=== PATIENT | male | born 1950 | race Caucasian/White ===

== ENCOUNTER 2017-10-10 20:03 | Emergency (ER) | payer MEDICARE, BC ==
[2017-10-10] MEDS ORDERED: 0.9 % SODIUM CHLORIDE 1,000 ML BAG IV ONE ×2 (20:20→23:11)
[2017-10-10] MEDS ORDERED: ONDANSETRON HCL IV 4 MG/2 ML VIAL IVP ONE (20:20)
[2017-10-10] MEDS ORDERED: DICYCLOMINE HCL 10 MG CAPSULE PO ONE (20:20)
--- NOTE | 2017-10-10 20:21 | Emergency Department Record ---
History of Present Illness - General Chief complaint: Nausea, Vomiting, Diarrhea Stated complaint: DIARRHEA,CHEST/SINUS CONGESTION, Time Seen by Provider: 10/10/17 20:16 Source: Patient Mode of Arrival: Ambulatory Limitations: No limitations - History of Present Illness Initial comments: 67 yo male presents with one week of abdominal symptoms. He reports that the symptoms started with constipation, bloated feeling and burping. He was seen in [place]. He was treated with Miralax. The abdominal fullness and bloating have continued. He had one episode of large diarrhea today. No vomiting but he does have reflux. No fevers or chills. No chest pain. He feels congestion and gets anxiety when he can not have a proper bowel movement. He denies any abdominal surgery history. PCP is Joan. He had a colonoscopy at some point in the past but can not remember the results. MD complaint: Abdominal pain, Diarrhea, Nausea -: Week(s) (1) Description of Vomiting: Watery Description of Diarrhea: Water Location: Epigastric Radiation: Epigastric Severity: Moderate Quality: Cramping Consistency: Constant Improves with: None Worsens with: Eating Context: Other Associated Symptoms: Loss of appetite - Related Data Home Medications Medication Instructions Recorded Confirmed Last Taken Dicyclomine HCl 20 mg PO BID 10/10/17 10/10/17 Unknown Lisinopril 40 mg PO DAILY 10/10/17 10/10/17 Unknown Metoprolol Tartrate [Lopressor] 50 mg PO BID 10/10/17 10/10/17 Unknown Polyethylene Glycol 3350 [Glycolax] 17 gm PO DAILY 10/10/17 10/10/17 Unknown Previous Rx's Medication Instructions Recorded Pantoprazole Sodium [Protonix] 20 mg PO DAILY #30 tablet. 10/11/17 Allergies Allergy/AdvReac Type Severity Reaction Status Date / Time No Known Drug Allergies Allergy Verified 10/10/17 22:20 Review of Systems Constitutional: Denies: Chills, Fever, Malaise, Weakness Eyes: Denies: Eye discharge, Eye pain, Photophobia, Vision change ENT: Reports: Congestion. Denies: Dental pain, Throat pain Respiratory: Denies: Cough, Dyspnea, Hemoptysis, Stridor, Wheezes Cardiovascular: Denies: Chest pain, Dyspnea on exertion, Edema, Palpitations, Syncope Endocrine: Denies: Fatigue Gastrointestinal: Reports: Abdominal pain, Constipation, Diarrhea, Nausea, Vomiting. Denies: Hematemesis, Hematochezia, Melena Genitourinary: Denies: Dysuria, Frequency, Hematuria Musculoskeletal: Reports: Back pain. Denies: Arthralgia, Joint swelling, Myalgia Skin: Denies: Bruising, Change in color, Rash Neurological: Denies: Confusion, Headache, Numbness, Weakness Psychiatric: Denies: Anxiety Hematological/Lymphatic: Denies: Blood Clots, Easy bleeding, Easy bruising Physical Exam - General General Appearance: Alert, Oriented x3, Cooperative, No acute distress Limitations: No limitations - Head Head exam: Normal inspection - Eye Eye exam: Normal appearance, PERRL - ENT ENT exam: Normal exam Ear exam: Normal external inspection Nasal Exam: Normal inspection Mouth exam: Normal external inspection Teeth exam: Normal inspection - Neck Neck exam: Normal inspection, Full ROM - Respiratory Respiratory exam: Normal lung sounds bilaterally. negative: Accessory muscle use, Decreased breath sounds, Prolonged expiratory, Respiratory distress, Rhonchi, Stridor, Wheezes - Cardiovascular Cardiovascular Exam: Regular rate, Normal rhythm, Normal heart sounds - GI/Abdominal GI/Abdominal exam: Soft, Normal bowel sounds, Tenderness. negative: Diminished bowel sounds, Distended, Guarding, Rebound, Rigid - Rectal Rectal exam: Deferred - exam: Deferred - Extremities Extremities exam: Normal inspection, Full ROM, Normal capillary refill. negative: Tenderness - Back Back exam: Reports: Vertebral tenderness (mild upper lumber tender). Denies: CVA tenderness (R), CVA tenderness (L), Paraspinal tenderness, Rash noted - Neurological Neurological exam: Alert, Oriented X3 - Psychiatric Psychiatric exam: Normal affect, Normal mood - Skin Skin exam: Dry, Intact, Normal color, Warm Course Vital Signs 10/10/17 20:09 Temperature 98.2 F Pulse Rate [ 89 Pulse Ox Probe] Respiratory 24 Rate Blood Pressure 140/109 [Left Arm] Pulse Ox 99 - Reevaluation(s) Reevaluation #1: No acute changes on the CBC The CMP and Lipase were reviewed. CR is 1.5 with GFR 50 10/10/17 21:00 UA is negative 10/10/17 22:10 Medical Decision Making - Lab Data Result diagrams: 10/10/17 20:22 10/10/17 20:22 Disposition Disposition: Discharge Clinical Impression: Abdominal pain Disposition: Home, Self-Care Condition: (1) Good Instructions: Gastroesophageal Reflux Disease (ED), Abdominal Pain (ED) Additional Instructions: You have been referred to the GI clinic at [facility] for your symptoms You will be contacted with a follow up appointment time Call your doctor tomorrow for close follow up of the symptoms Return immediately if you have a return of symptoms, any new symptoms or concerns Prescriptions: Pantoprazole Sodium [Protonix] 20 mg PO DAILY #30 tablet. Referrals: [facility] [Provider Group] GLORIA RENDON [MEDICAL DOCTOR] - Forms: Patient Portal Access Time of Disposition: 00:59 Quality - Quality Measures Quality Measures: N/A - Blood Pressure Screening Does Patient Have Any of the Following: Active Dx of HTN Blood Pressure Classification: Hypertensive Reading Systolic Measurement: 182 Diastolic Measurement: 109 Screening for High Blood Pressure: Patient Exclusion, Hx of HTN [G9744]
[2017-10-10 20:29] LABS: BASO % 0.5 % (0-6); EOS % 2.3 % (0-6); GRAN % 65.5 % (47-80); HEMATOCRIT 42.4 % (42.0-52.0); HEMOGLOBIN 14.3 gm/dl (14.0-18.0); LYMPH % 20.9 % (16-45); MEAN CELL VOLUME 95.3 fl (81-97); MEAN CORPUSCULAR HEMOGLOBIN 32.1 pg (27-33); MEAN CORPUSCULAR HGB CONC 33.7 g/dl (32-36); MEAN PLATELET VOLUME 8.7 fl (7.4-10.4); MONO % 10.8 % (0-9); PLATELET COUNT 338 K/uL (130-400); RED BLOOD COUNT 4.45 M/uL (4.40-5.70)
[2017-10-10 20:42] LABS: BILIRUBIN,TOTAL 0.7 mg/dL (0.2-1.0); CREATININE 1.5 mg/dL (0.7-1.2)
[2017-10-10 20:43] LABS: TOTAL PROTEIN 7.9 g/dL (6.6-8.7)
[2017-10-10 20:47] LABS: ALB/GLOB RATIO 1.4 (1.1-1.8); ALBUMIN 4.6 g/dL (4.0-5.0)
[2017-10-10 21:06] LABS: URINE APPEARANCE CLEAR; URINE BILIRUBIN NEGATIVE (NEGATIVE); URINE BLOOD NEGATIVE (NEGATIVE); URINE COLOR YELLOW; URINE GLUCOSE (UA) NEGATIVE (NEGATIVE); URINE KETONE NEGATIVE (NEGATIVE); URINE LEUKOCYTE ESTERASE NEGATIVE (NEGATIVE); URINE NITRITE NEGATIVE (NEGATIVE); URINE PROTEIN NEGATIVE (NEGATIVE); URINE UROBILINOGEN 0.2 E.U./dL (0.20 - 1.00)
--- NOTE | 2017-10-11 00:12 | Emergency Department Record ---
History of Present Illness - General Chief complaint: Nausea, Vomiting, Diarrhea Stated complaint: DIARRHEA,CHEST/SINUS CONGESTION, Time Seen by Provider: 10/10/17 20:16 Source: Patient Mode of Arrival: Ambulatory Limitations: No limitations - History of Present Illness MD complaint: Abdominal pain, Diarrhea, Nausea Onset/Timin -: Week(s) (1) Description of Vomiting: Watery Description of Diarrhea: Water Associated Abdominal Pain: No Location: Epigastric Radiation: Epigastric Severity: Moderate Quality: Cramping Consistency: Constant Improves with: None Worsens with: Eating Context: Other Associated Symptoms: Loss of appetite - Related Data Home Medications Medication Instructions Recorded Confirmed Last Taken Dicyclomine HCl 20 mg PO BID 10/10/17 10/10/17 Unknown Lisinopril 40 mg PO DAILY 10/10/17 10/10/17 Unknown Metoprolol Tartrate [Lopressor] 50 mg PO BID 10/10/17 10/10/17 Unknown Polyethylene Glycol 3350 [Glycolax] 17 gm PO DAILY 10/10/17 10/10/17 Unknown Previous Rx's Medication Instructions Recorded Pantoprazole Sodium [Protonix] 20 mg PO DAILY #30 tablet. 10/11/17 Allergies Allergy/AdvReac Type Severity Reaction Status Date / Time No Known Drug Allergies Allergy Verified 10/10/17 22:20 Travel Screening - Travel/Exposure Within Last 30 Days Have you traveled within the last 30 days?: No - Travel/Exposure Within Last Year Have you traveled outside the [place] in the last year?: No - Additonal Travel Details Have you been exposed to anyone with a communicable illness?: No - Travel Symptoms Symptom Screening: None Review of Systems Constitutional: Denies: Chills, Fever, Malaise, Weakness Eyes: Denies: Eye discharge, Eye pain, Photophobia, Vision change ENT: Reports: Congestion. Denies: Dental pain, Throat pain Respiratory: Denies: Cough, Dyspnea, Hemoptysis, Stridor, Wheezes Cardiovascular: Denies: Chest pain, Dyspnea on exertion, Edema, Palpitations, Syncope Endocrine: Denies: Fatigue Gastrointestinal: Reports: Abdominal pain, Constipation, Diarrhea, Nausea, Vomiting. Denies: Hematemesis, Hematochezia, Melena Genitourinary: Denies: Dysuria, Frequency, Hematuria Musculoskeletal: Reports: Back pain. Denies: Arthralgia, Joint swelling, Myalgia Skin: Denies: Bruising, Change in color, Rash Neurological: Denies: Confusion, Headache, Numbness, Weakness Psychiatric: Denies: Anxiety Hematological/Lymphatic: Denies: Blood Clots, Easy bleeding, Easy bruising Past Medical History - SOCIAL HISTORY Smoking Status: Never smoker Alcohol Use: None Drug Use: None - RESPIRATORY Hx Respiratory Disorders: No - CARDIOVASCULAR Hx Cardio Disorders: Yes Hx Hypertension: Yes - NEURO Hx Neuro Disorders: No - GI Hx GI Disorders: No - Hx Genitourinary Disorders: No - ENDOCRINE Hx Endocrine Disorders: No - MUSCULOSKELETAL Hx Musculoskeletal Disorders: No - PSYCH Hx Psych Problems: No - HEMATOLOGY/ONCOLOGY Hx Hematology/Oncology Disorders: Yes Hx Cancer: Yes (sx) Hx Radiation Therapy: Yes (2007) Family Medical History Any Significant Family History?: No Physical Exam - General Limitations: No limitations Course Vital Signs 10/10/17 10/10/17 10/10/17 20:09 20:10 21:10 Temperature 98.2 F 98.2 F Pulse Rate [ 89 71 Pulse Ox Probe] Respiratory 24 24 20 Rate Blood Pressure 140/109 194/106 [Left Arm] Pulse Ox 99 99 99 10/10/17 10/10/17 22:10 23:10 Temperature Pulse Rate [ 80 72 Pulse Ox Probe] Respiratory 20 18 Rate Blood Pressure 149/97 149/100 [Left Arm] Pulse Ox 97 98 - Reevaluation(s) Reevaluation #1: The CT was reviewed. Non obstructing bilateral renal stones 3.4 abdominal aneurysm. No dissection/leak/rupture Fat containing umbilical hernia We discussed follow up, GI referral, and reasons to return to the ED for a recheck if there are any concerns. 10/11/17 00:06 The patient is aware of the 3.4 cm AAA. He will follow up with his doctor as this will require jail monitoring rx for Protonix provided 10/11/17 00:15 Medical Decision Making - Lab Data Result diagrams: 10/10/17 20:22 10/10/17 20:22 Lab Results 10/10/17 10/10/17 10/10/17 Range/Units 20:22 20:22 21:06 WBC 10.0 (4.2-12.2) K/uL RBC 4.45 (4.40-5.70) M/uL Hgb 14.3 (14.0-18.0) gm/dl Hct 42.4 (42.0-52.0) % MCV 95.3 (81-97) fl MCH 32.1 (27-33) pg MCHC 33.7 (32-36) g/dl RDW 13.0 (11.5-14.5) % Plt Count 338 (130-400) K/uL MPV 8.7 (7.4-10.4) fl Gran % 65.5 (47-80) % Lymphocytes % 20.9 (16-45) % Monocytes % 10.8 H (0-9) % Eosinophils % 2.3 (0-6) % Basophils % 0.5 (0-6) % Sodium 136 (136-145) mmol/L Potassium 4.1 (3.4-4.5) mmol/L Chloride 98 (98-107) mmol/L Carbon Dioxide 22.0 (22-29) mmol/L Anion Gap 16.0 (7-16) BUN 24 H (8-23) mg/dL Creatinine 1.5 H (0.7-1.2) mg/dL Estimated GFR 50 mL/min Random Glucose 124 H (74-109) mg/dL Calcium 9.7 (8.8-10.2) mg/dL Total Bilirubin 0.70 (0.2-1.0) mg/dL AST 29 (10.0-50.0) U/L ALT 31 (<41) U/L Alkaline Phosphatase 68 (40-129) U/L Total Protein 7.9 (6.6-8.7) g/dL Albumin 4.6 (4.0-5.0) g/dL Globulin 3.3 (1.4-4.8) gm/dL Albumin/Globulin Ratio 1.4 (1.1-1.8) Lipase 34 (13-60) U/L Urine Color Yellow Urine Appearance Clear Urine pH 5.5 (5.0-8.0) Ur Specific [place] 1.020 (1.002-1.030) Urine Protein Negative (NEGATIVE) Urine Glucose (UA) Negative (NEGATIVE) Urine Ketones Negative (NEGATIVE) Urine Blood Negative (NEGATIVE) Urine Nitrite Negative (NEGATIVE) Urine Bilirubin Negative (NEGATIVE) Urine Urobilinogen 0.2 (0.20 - 1.00) E.U./dL Ur Leukocyte Esterase Negative (NEGATIVE) Disposition Disposition: Discharge Clinical Impression: Abdominal pain Disposition: Home, Self-Care Condition: (1) Good Instructions: Gastroesophageal Reflux Disease (ED), Abdominal Pain (ED) Additional Instructions: You have been referred to the GI clinic at [facility] for your symptoms You will be contacted with a follow up appointment time Call your doctor tomorrow for close follow up of the symptoms Return immediately if you have a return of symptoms, any new symptoms or concerns Prescriptions: Pantoprazole Sodium [Protonix] 20 mg PO DAILY #30 tablet. Referrals: [facility] [Provider Group] GLORIA RENDON [MEDICAL DOCTOR] - Forms: Patient Portal Access Time of Disposition: 00:15 Quality - Quality Measures Quality Measures: N/A - Blood Pressure Screening Does Patient Have Any of the Following: Active Dx of HTN Blood Pressure Classification: Hypertensive Reading Systolic Measurement: 182 Diastolic Measurement: 109 Screening for High Blood Pressure: Patient Exclusion, Hx of HTN [G9744]
--- NOTE | 2017-10-13 15:07 | CT SCAN REPORT ---
EXAM: EMERGENCY CT SCAN OF THE ABDOMEN AND PELVIS WITH CONTRAST HISTORY: ABDOMINAL PAIN, BLOATING AND DIARRHEA. TECHNIQUE: Axial CT scan of the abdomen and pelvis was performed following both oral and IV contrast administration. Please see the medical record for contrast specifics. A preliminary report was provided by [facility]. Comparison: No prior CT with which to compare. FINDINGS: No calcified gallstones are seen within the gallbladder. There do appear to be bilateral currently nonobstructing intrarenal calculi, however, no hydronephrosis or hydroureter is seen on either side with no definite ureteral calculus seen on either side and no bladder calculus evident. Mild diffuse fatty infiltration of the liver with no focal hepatic mass evident. No definite splenic, adrenal, or pancreatic mass identified. There is an approximately 1.4 cm low attenuation mass upper pole right kidney with a CT density of 16 consistent with a cyst. There are approximately four even tinier low attenuation foci in the left kidney which are all too small to accurately characterize by CT, but likely represent additional tiny left renal cysts. There is an infrarenal abdominal aortic aneurysm measuring about 3.5 cm in AP x 3.3 cm in transverse diameter. Some mild dilatation of the distal common iliac artery on the right as well measuring up to about 2.2 cm in size. Mild enlargement of the prostate measuring about 4.8 cm in transverse x 4.6 cm in AP diameters. Correlation with physical exam and serum PSA is suggested. Oral contrast given has passed throughout the small bowel into the colon with no small bowel obstruction evident. The appendix is visualized, largely opacified with the oral contrast, with no evidence of appendicitis. There is a small periumbilical anterior abdominal wall hernia containing adipose tissue, but no bowel. There is some minor streaky atelectasis or infiltrate in the right base posteromedially. No free intraperitoneal air or free intraperitoneal fluid identified. Prominent spurring in the lower thoracic spine. Some mild posterior spurring at multiple level in the lumbar spine particularly at the lumbosacral interspace. IMPRESSION: 1. MILD DIFFUSE FATTY INFILTRATION OF THE LIVER. 2. BILATERAL CURRENTLY NONOBSTRUCTING INTRARENAL CALCULI WITH NO HYDRONEPHROSIS OR URETERAL CALCULUS SEEN. 3. APPEARANCE CONSISTENT WITH QUITE SMALL BILATERAL RENAL CYSTS, THE LARGEST IS ABOUT 1.4 CM IN SIZE ON THE RIGHT. 4. INFRARENAL ABDOMINAL AORTIC ANEURYSM MEASURING 3.5 CM IN MAXIMUM DIAMETER. 5. SMALL PERIUMBILICAL ANTERIOR ABDOMINAL WALL HERNIA CONTAINING ADIPOSE TISSUE , BUT NO BOWEL. 6. MILD ENLARGEMENT OF THE PROSTATE. 7. THE APPENDIX IS NEGATIVE. NO FREE AIR OR FREE FLUID EVIDENT. JOB NUMBER: [id number] [facility]
== END 2017-10-11 00:24 | disposition home or self-care (01) ==
LOC: ER 20:03
DX: R10.13 Epigastric pain (principal); R11.2 Nausea with vomiting, unspecified; R19.7 Diarrhea, unspecified; I71.4 Abdominal aortic aneurysm, without rupture; I10 Essential (primary) hypertension
CPT/HCPCS: 99284 ×2; 96374; 96361; 83690; 85025; 80053; 81003; 74177; Q9967; J2405; J7030

== ENCOUNTER 2017-10-26 21:43 | Emergency (ER) | payer MEDICARE, BC ==
--- NOTE | 2017-10-26 22:10 | Emergency Department Record ---
History of Present Illness - General Chief Complaint: Back Pain/Injury Stated Complaint: BACK/SHOULDER PAIN Time Seen by Provider: 10/26/17 21:58 Source: Patient - History of Present Illness Initial Comments: Patient states that he has had intermittent back pain between his shoulder blades and into his left lower thorax for the past month. He lives alone, states it is worst at night and gets better "when he takes his mind off it." Tonight he came in because he couldn't get comfortable laying or standing or sitting, so he came here. He was seen 10-10-17 and a 3.9 cm aneurysm was seen in his abdomen. He denies anteror chest symptoms, nausea, sweating, syncope, shortness of breath or difficulty breathing. MD Complaint: Back pain - Related Data Home Medications Medication Instructions Recorded Confirmed Last Taken Hydrochlorothiazide [Hctz] 25 mg PO DAILY 10/26/17 10/26/17 Unknown Previous Rx's Medication Instructions Recorded Cyclobenzaprine HCl [Flexeril] 10 mg PO TID #10 tablet 10/27/17 Allergies Allergy/AdvReac Type Severity Reaction Status Date / Time No Known Drug Allergies Allergy Verified 10/10/17 22:20 Review of Systems Reviewed: No additional complaints except as noted below Constitutional: Reports: As per HPI. Denies: Chills, Fever, Malaise, Night sweats, Weakness, Weight change Eyes: Reports: As per HPI. Denies: Eye discharge, Eye pain, Photophobia, Vision change ENT: Reports: As per HPI. Denies: Congestion, Dental pain, Ear pain, Epistaxis , Hearing loss, Throat pain Respiratory: Reports: As per HPI. Denies: Cough, Dyspnea, Hemoptysis, Stridor, Wheezes Cardiovascular: Reports: As per HPI. Denies: Arrhythmia, Chest pain, Dyspnea on exertion, Edema, Murmurs, Orthopnea, Palpitations, Paroxysmal nocturnal dyspnea, Rheumatic Fever, Syncope Endocrine: Reports: As per HPI. Denies: Fatigue, Heat or cold intolerance, Polydipsia, Polyuria Gastrointestinal: Reports: As per HPI. Denies: Abdominal pain, Constipation, Diarrhea, Hematemesis, Hematochezia, Melena, Nausea, Vomiting Genitourinary: Reports: As per HPI. Denies: Dysuria, Frequency, Hematuria, Incontinence, Retention, Testicular pain, Testicular mass, Urgency Musculoskeletal: Reports: As per HPI. Denies: Arthralgia, Back pain, Gout, Joint swelling, Myalgia, Neck pain Skin: Reports: As per HPI. Denies: Bruising, Change in color, Change in hair/ nails, Lesions, Pruritus, Rash Neurological: Reports: As per HPI. Denies: Abnormal gait, Confusion, Headache, Numbness, Paresthesias, Seizure, Tingling, Tremors, Vertigo, Weakness Psychiatric: Reports: As per HPI. Denies: Anxiety, Auditory hallucinations, Depression, Homicidal thoughts, Suicidal thoughts, Visual hallucinations Hematological/Lymphatic: Reports: As per HPI. Denies: Anemia, Blood Clots, Easy bleeding, Easy bruising, Swollen glands Past Medical History - SOCIAL HISTORY Smoking Status: Never smoker Drug Use: None - RESPIRATORY Hx Respiratory Disorders: No - CARDIOVASCULAR Hx Cardio Disorders: Yes Hx Hypertension: Yes - NEURO Hx Neuro Disorders: No - GI Hx GI Disorders: No - Hx Genitourinary Disorders: No - ENDOCRINE Hx Endocrine Disorders: No - MUSCULOSKELETAL Hx Musculoskeletal Disorders: No - PSYCH Hx Psych Problems: No - HEMATOLOGY/ONCOLOGY Hx Hematology/Oncology Disorders: Yes Hx Cancer: Yes (sx) Hx Radiation Therapy: Yes (2007) Physical Exam - General General Appearance: Alert, Oriented x3, Cooperative, No acute distress, Anxious (mildly) - Head Head exam: Normal inspection - Eye Eye exam: Normal appearance, PERRL Pupils: Normal accommodation - ENT ENT exam: Normal exam, Mucous membranes moist, Normal external ear exam, Normal orophraynx, TM's normal bilaterally Ear exam: Normal external inspection. negative: External canal tenderness Nasal Exam: Normal inspection. negative: Discharge, Sinus tenderness Mouth exam: Normal external inspection, Tongue normal Teeth exam: Normal inspection. negative: Dental caries Throat exam: Normal inspection. negative: Tonsillar erythema, Tonsillar exudate - Neck Neck exam: Normal inspection, Full ROM. negative: Tenderness - Respiratory Respiratory exam: Normal lung sounds bilaterally, Chest wall tenderness ( minimal soreness on palpation laterally left lower chest at anterior axillary line). negative: Respiratory distress - Cardiovascular Cardiovascular Exam: Regular rate, Normal rhythm, Normal heart sounds - GI/Abdominal GI/Abdominal exam: Soft, Normal bowel sounds. negative: Tenderness - Rectal Rectal exam: Deferred - exam: Deferred - Extremities Extremities exam: Normal inspection, Full ROM, Normal capillary refill. negative: Calf tenderness, Pedal edema, Tenderness - Back Back exam: Reports: Normal inspection, Full ROM. Denies: CVA tenderness (R), CVA tenderness (L), Muscle spasm, Rash noted, Tenderness - Neurological Neurological exam: Alert, CN II-XII intact, Normal gait, Oriented X3, Reflexes normal. negative: Motor sensory deficit - Psychiatric Psychiatric exam: Normal affect, Normal mood - Skin Skin exam: Dry, Intact, Normal color, Warm Course Vital Signs 10/26/17 21:49 Temperature 97.7 F Pulse Rate [ 103 H Pulse Ox Probe] Respiratory 24 Rate Blood Pressure 152/120 [Left Arm] Pulse Ox 98 - Reevaluation(s) Reevaluation #1: 10/26/17 22:21 Patient states that he is much more comfortable since he arrived here. Workup in progress. Reevaluation #2: blood pressure both arms: 140/106 and 143/102 10/27/17 00:58 Reevaluation #3: Patient is resting stating he has his back pain as before and just wants to know the results of test. Results of labs discussed with him, but CTA results pending. Patient states he is fine while awaiting the results. 10/27/17 01:04 Reevaluation #4: The patient's results were discussed. All questions answered. 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 Norflex was ordered for muscles spasm to see if it helps his discomfort. He states he will get lower back spasms when he bends over and also get "warren horses" in his legs. 10/27/17 01:40 10/27/17 02:35 Reevaluation #5: Repeat troponin now unchanged from over 4 hours ago. Patient will be discharged home. He states his back pain is now gone. He is ready for DC. 10/27/17 02:26 10/27/17 02:35 Medical Decision Making - Management Options MDM Management: No Additional Work-up Planned - Data Complexity MDM Data: Labs Ordered and/or Reviewed, X-Ray Ordered and/or Reviewed (CTA chest No PE, No dissection, no aneurysm seen. 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 Per [facility].), EKG Ordered and/or Reviewed - Lab Data Result diagrams: 10/26/17 21:55 10/26/17 23:50 Disposition Disposition: Discharge Clinical Impression: Back pain, thoracic Qualifiers: Chronicity: chronic Back pain laterality: bilateral Qualified Code(s): M54.6 - Pain in thoracic spine Instructions: Low Back Strain (ED), Muscle Spasm (ED) Additional Instructions: Follow up with your ice cream man on Monday as previously arranged. Continue present medications as prescribed. Take flexeril as directed as needed for muscle spasm. Follow up with your PCP next week for recheck. Prescriptions: Cyclobenzaprine HCl [Flexeril] 10 mg PO TID #10 tablet Forms: Patient Portal Access Quality - Quality Measures Quality Measures: N/A - Blood Pressure Screening Does Patient Have Any of the Following: No Blood Pressure Classification: Hypertensive Reading Systolic Measurement: 167 Diastolic Measurement: 108 Screening for High Blood Pressure: Patient Exclusion, Hx of HTN [G9744]
[2017-10-26 22:27] LABS: BASO % 0.6 % (0-6); EOS % 3.3 % (0-6); GRAN % 58.1 % (47-80); HEMATOCRIT 40.7 % (42.0-52.0); HEMOGLOBIN 13.5 gm/dl (14.0-18.0); MEAN CELL VOLUME 95.5 fl (81-97); MEAN CORPUSCULAR HGB CONC 33.2 g/dl (32-36); MEAN PLATELET VOLUME 8.9 fl (7.4-10.4); PLATELET COUNT 307 K/uL (130-400); RED BLOOD COUNT 4.26 M/uL (4.40-5.70); RED CELL DISTRIBUTION WIDTH 12.6 % (11.5-14.5); WHITE BLOOD COUNT W/O DIFF 9.3 K/uL (4.2-12.2)
[2017-10-26 22:28] LABS: MEAN CORPUSCULAR HEMOGLOBIN 31.6 pg (27-33)
[2017-10-26 22:36] LABS: BLOOD UREA NITROGEN 24 mg/dL (8-23); CREATININE 1.4 mg/dL (0.7-1.2); EST GLOMERULAR FILTRATION RATE 54 mL/min
[2017-10-26 22:37] LABS: TOTAL PROTEIN 7.8 g/dL (6.6-8.7)
[2017-10-26 22:38] LABS: PROTHROMBIN TIME (PATIENT) 9.9 SECONDS (9.5-12.1)
[2017-10-26 22:39] LABS: GLUCOSE,RANDOM 110 mg/dL (74-109)
[2017-10-26 22:41] LABS: ALT/SGPT 27 U/L (<41); AST/SGOT 25 U/L (10.0-50.0)
[2017-10-26 22:42] LABS: ALB/GLOB RATIO 1.4 (1.1-1.8); ALBUMIN 4.5 g/dL (4.0-5.0); ALKALINE PHOSPHATASE 67 U/L (40-129)
[2017-10-26 22:44] LABS: NTpro B-NATRIURETIC PEPTIDE 61.26 pg/mL (<125)
[2017-10-26] MEDS ORDERED: METHYLPREDNISOLONE PF 125MG/VIAL IVP ONE (22:46)
[2017-10-26] MEDS ORDERED: DIPHENHYDRAMINE HCL 50 MG/ML VIAL IVP ONE (22:46)
[2017-10-26] MEDS ORDERED: 0.9 % SODIUM CHLORIDE 1,000 ML BAG IV ONE (22:46)
[2017-10-26 22:52] LABS: THYROID STIMULATING HORMONE 1.15 uIU/mL (0.270-4.20)
[2017-10-27] LABS: CREATININE 1.3 mg/dL (0.7-1.2)
[2017-10-27] MEDS ORDERED: ORPHENADRINE CITRATE 60MG/2ML VIAL IVP ONE (01:39)
--- NOTE | 2017-10-29 20:38 | CT ANGIOGRAM REPORT ---
EXAM: CT ANGIOGRAM CHEST CTA w contrast HISTORY: UPPER BACK PAIN RADIATING INTO THE LEFT SIDE OF CHEST FOR TWO WEEKS, POSSIBLE PE. TECHNIQUE: CTA of the chest performed following the intravenous administration of iodinated contrast media. Please see the medical record for IV contrast specifics. Postprocessing on an independent workstation was performed with multiple 3D MIP series obtained. Preliminary report provided by [facility]. COMPARISON: No prior chest CTA with which to compare and no prior chest x-ray as well. FINDINGS: No definite PE identified. There is mild aneurysmal dilatation of the ascending aorta measuring about 4.2 cm in maximum diameter. No aneurysmal dilatation of the descending thoracic aorta evident and no thoracic aortic dissection seen. Coronary artery calcification is present. No pericardial effusion evident and no pleural effusion evident on either side. There is some ectasia of the SMA and bilateral renal arteries, also apparent on the recent abdomen CT of 10/20/17. Some normal size mediastinal nodes are seen with no definite hilar or mediastinal adenopathy evident. Small cyst upper pole right kidney again seen appearing unchanged from the recent abdomen CT of 10/10/17. Nonobstructing calculus upper pole right kidney, also present on the prior CT. Some peripheral bullae or honeycombing noted in the upper lungs in particular. No pneumothorax is seen. Mild dependent atelectasis right base. Hypertrophic spurring in the thoracic spine. IMPRESSION: 1. NO DEFINITE PE IDENTIFIED. 2. CORONARY ARTERY CALCIFICATION. 3. MILD ANEURYSMAL DILATATION OF THE ASCENDING AORTA MEASURING ABOUT 4.2 CM IN DIAMETER. 4. TINY PERIPHERAL BULLAE OR HONEYCOMBING IN THE LUNGS, PARTICULARLY IN THE UPPER LUNGS. 5. STABLE SMALL UPPER POLE RIGHT RENAL CYST AND NONOBSTRUCTING CALCULUS UPPER POLE RIGHT KIDNEY WHEN COMPARED TO THE PRIOR ABDOMEN CT OF 10/10/17. JOB NUMBER: [id number] MTDD
== END 2017-10-27 02:43 | disposition home or self-care (01) ==
LOC: ER 21:43
DX: M54.6 Pain in thoracic spine (principal); R07.89 Other chest pain; I10 Essential (primary) hypertension
CPT/HCPCS: 99284 ×2; 96374; 96375; 82565; 85025; 85730; 85610; 80053; 84443; 84484; 85379; 83880; 71275; 93005; 93010; Q9967; J2360

== ENCOUNTER 2017-11-12 16:30 | Emergency (ER) | payer MEDICARE, BC ==
--- NOTE | 2017-11-12 16:52 | Emergency Department Record ---
History of Present Illness - General Chief complaint: Cold Stated complaint: CONGESTION Time Seen by Provider: 11/12/17 16:38 Source: Patient Mode of Arrival: Ambulatory Limitations: No limitations - History of Present Illness Initial comments: The patient is here for intermittent nasal congestion for a month. He has been to the ER multiple times for it and has not received a diagnosis. He complains of a clear runny nose and intermittent congestion. There is no fever, facial pressure, colored nasal drainage, ear pain, ST or cough. The patient does have an appointment with his PCP in the morning. MD complaint: Other Onset/Timin -: Days(s) - Related Data Home Medications Medication Instructions Recorded Confirmed Last Taken Atenolol 100 mg PO DAILY 11/12/17 11/12/17 11/12/17 Previous Rx's Medication Instructions Recorded Fluticasone Propionate [Flonase] 2 spray EACH NARES DAILY #1 bottle 11/12/17 Allergies Allergy/AdvReac Type Severity Reaction Status Date / Time No Known Drug Allergies Allergy Verified 10/10/17 22:20 Travel Screening - Travel/Exposure Within Last 30 Days Have you traveled within the last 30 days?: No - Travel/Exposure Within Last Year Have you traveled outside the [place] in the last year?: No - Additonal Travel Details Have you been exposed to anyone with a communicable illness?: No - Travel Symptoms Symptom Screening: None Review of Systems Constitutional: Denies: Chills, Fever Eyes: Denies: Eye discharge ENT: Reports: Congestion. Denies: Epistaxis Respiratory: Denies: Cough, Dyspnea Past Medical History - SOCIAL HISTORY Smoking Status: Never smoker Alcohol Use: None Drug Use: None - RESPIRATORY Hx Respiratory Disorders: No - CARDIOVASCULAR Hx Cardio Disorders: Yes Hx Hypertension: Yes - NEURO Hx Neuro Disorders: No - GI Hx GI Disorders: No - Hx Genitourinary Disorders: No - ENDOCRINE Hx Endocrine Disorders: No - MUSCULOSKELETAL Hx Musculoskeletal Disorders: No - PSYCH Hx Psych Problems: No - HEMATOLOGY/ONCOLOGY Hx Hematology/Oncology Disorders: Yes Hx Cancer: Yes (sx) Hx Radiation Therapy: Yes (2007) Family Medical History Any Significant Family History?: No Physical Exam - General General Appearance: Alert, Oriented x3, Cooperative, No acute distress - Head Head exam: Atraumatic, Normocephalic, Normal inspection - Eye Eye exam: Normal appearance, PERRL, EOMI - ENT ENT exam: Normal exam, Mucous membranes moist, Normal external ear exam, Normal orophraynx, TM's normal bilaterally Nasal Exam: Normal inspection. negative: Active bleeding, Discharge, Dried blood, Foreign body, Sinus tenderness Throat exam: Normal inspection. negative: Tonsillar erythema, Tonsillar exudate - Neck Neck exam: Normal inspection, Full ROM. negative: Lymphadenopathy, Meningismus , Tenderness - Respiratory Respiratory exam: Normal lung sounds bilaterally. negative: Respiratory distress - Cardiovascular Cardiovascular Exam: Regular rate, Normal rhythm, Normal heart sounds Course Vital Signs 11/12/17 16:33 Temperature 97.6 F Pulse Rate 70 Respiratory 18 Rate Blood Pressure 150/97 Pulse Ox 96 - Reevaluation(s) Reevaluation #1: I did explain to the patient that it appears he has some intermittent nasal congestion. He is to use OTC Zyrtec and prescription Flonase and see his PCP in the AM. 11/12/17 16:50 Disposition Disposition: Discharge Clinical Impression: Mild nasal congestion Disposition: Home, Self-Care Condition: (2) Stable Instructions: Cold Symptoms (ED) Additional Instructions: Please take Zyrtec 10 mg daily for a week along with the Flonase. Please see your family doctor for any further issues. Prescriptions: Fluticasone Propionate [Flonase] 2 spray EACH NARES DAILY #1 bottle Forms: Patient Portal Access Time of Disposition: 16:52 Quality - Quality Measures Quality Measures: N/A - Blood Pressure Screening View Details: Yes Does Patient Have Any of the Following: Active Dx of HTN Blood Pressure Classification: Hypertensive Reading Systolic Measurement: 150 Diastolic Measurement: 97 Screening for High Blood Pressure: Patient Exclusion, Hx of HTN [G9744]
== END 2017-11-12 16:58 | disposition home or self-care (01) ==
LOC: ER 16:30
DX: R09.81 Nasal congestion (principal); I10 Essential (primary) hypertension
CPT/HCPCS: 99282

== ENCOUNTER 2017-12-25 02:35 | Emergency (ER) | payer MEDICARE, BC ==
[2017-12-25] MEDS ORDERED: DEXAMETHASONE SOD PHOSPHATE 10MG/ML VIAL PO ONE (02:55)
--- NOTE | 2017-12-25 02:55 | Emergency Department Record ---
History of Present Illness - General Chief complaint: Abdominal Pain Stated complaint: ABDOMINAL PAIN Time Seen by Provider: 12/25/17 02:36 Source: Patient Mode of Arrival: Ambulatory Limitations: No limitations - History of Present Illness Initial comments: 67 yo male presents with 2-3 months of fairly constant nasal drainage. He states he woke up this morning so congested it was hard to breath. He states after sitting up and driving to the ED his nose has drained and he feels improved. His sinuses have been congested with pressure. The drainage has been mostly clear. He has a non productive cough. He has also been dealing with several month of a bloated feeling in the abdomen. He has been seen in the ED for the drainage and the abdomen. He has had an abdominal CT on 10/10/[address] angiogram of the CT. He has known thoracic and abdominal aneurysms. The aneurysm were known prior. He follows with a medical csr in [place]. He saw his medical csr after the recent scans. He has also seen a GI doctor at [facility] since then as well. No scope was planned. No nausea or vomiting. No constipation or diarrhea. No changes in the nature of the discomfort. He has tried Afrin and Flonase for his nasal congestion. PCP is Dr Franco in [place]. complaint: Other (Congestion) -: Month(s) Quality: Other Consistency: Constant Improves with: None Worsens with: None - Related Data Home Medications Medication Instructions Recorded Confirmed Last Taken Ipratropium [place] 2 spray NS QID 12/25/17 12/25/17 Unknown Pantoprazole Sodium [Protonix] 20 mg PO DAILY 12/25/17 12/25/17 Unknown Previous Rx's Medication Instructions Recorded Amoxicillin 500Mg Capsule [Amoxil] 500 mg PO TID #30 tab 12/25/17 Allergies Allergy/AdvReac Type Severity Reaction Status Date / Time No Known Drug Allergies Allergy Verified 10/10/17 22:20 Review of Systems Constitutional: Denies: Chills, Fever, Malaise, Weakness Eyes: Denies: Eye discharge, Eye pain, Photophobia, Vision change ENT: Reports: Congestion. Denies: Dental pain, Throat pain Respiratory: Denies: Cough, Dyspnea, Hemoptysis Cardiovascular: Denies: Chest pain, Palpitations, Syncope Endocrine: Denies: Fatigue, Polydipsia, Polyuria Gastrointestinal: Reports: As per HPI, Abdominal pain. Denies: Diarrhea, Nausea , Vomiting Genitourinary: Denies: Dysuria, Frequency, Hematuria Musculoskeletal: Denies: Arthralgia, Back pain, Myalgia Skin: Denies: Bruising, Change in color, Rash Neurological: Denies: Headache Psychiatric: Denies: Anxiety Hematological/Lymphatic: Denies: Easy bleeding, Easy bruising Past Medical History - SOCIAL HISTORY Smoking Status: Never smoker Drug Use: None - RESPIRATORY Hx Respiratory Disorders: No - CARDIOVASCULAR Hx Cardio Disorders: Yes Hx Hypertension: Yes - NEURO Hx Neuro Disorders: No - GI Hx GI Disorders: No - Hx Genitourinary Disorders: No - ENDOCRINE Hx Endocrine Disorders: No - MUSCULOSKELETAL Hx Musculoskeletal Disorders: No - PSYCH Hx Psych Problems: No - HEMATOLOGY/ONCOLOGY Hx Hematology/Oncology Disorders: Yes Hx Cancer: Yes (sx) Hx Radiation Therapy: Yes (2007) Physical Exam - General General Appearance: Alert, Oriented x3, Cooperative, No acute distress Limitations: No limitations - Head Head exam: Atraumatic, Normal inspection - Eye Eye exam: Normal appearance, PERRL. negative: Conjunctival injection, Scleral icterus - ENT ENT exam: Mucous membranes moist, Normal orophraynx, TM's normal bilaterally. negative: Normal exam Ear exam: Normal external inspection Nasal Exam: Discharge, Dried blood, Sinus tenderness. negative: Foreign body Mouth exam: Tongue normal. negative: Drooling Teeth exam: Dental caries. negative: Normal inspection Throat exam: Normal inspection - Neck Neck exam: Normal inspection - Respiratory Respiratory exam: Normal lung sounds bilaterally. negative: Respiratory distress - Cardiovascular Cardiovascular Exam: Regular rate, Normal rhythm, Normal heart sounds Peripheral Pulses: 2+: Radial (R), Radial (L) - GI/Abdominal GI/Abdominal exam: Soft, Other (Very soft non tender abdomen). negative: Normal bowel sounds, Distended, Guarding, Rebound, Rigid, Tenderness - Rectal Rectal exam: Deferred - exam: Deferred - Extremities Extremities exam: Normal inspection - Neurological Neurological exam: Alert, Oriented X3 - Psychiatric Psychiatric exam: Normal affect, Normal mood - Skin Skin exam: Dry, Intact, Normal color, Warm Course Vital Signs 12/25/17 02:42 Temperature 97.7 F Pulse Rate [ 63 Pulse Ox Probe] Respiratory 24 Rate Blood Pressure 193/122 [Right Arm] Pulse Ox 100 - Reevaluation(s) Reevaluation #1: The patient's main concern that brought him to the ED was congestion. He was advised to stop the Aftrin and see his doctor this week for a recheck of his blood pressure. The abdomen bloating is chronic, unchanged. He has followed up the GI and his cardiologists. The aneurysms by history have been stable. Given his primary complaint of sinus pain, congestion and pressure this will be treated. 12/25/17 02:57 Disposition Disposition: Discharge Clinical Impression: Sinusitis Disposition: Home, Self-Care Condition: (1) Good Instructions: Sinusitis (ED) Additional Instructions: Call your doctor to be seen again this week for your ongoing sinus drainage Take the antibiotic as directed until gone See your doctor this week to recheck your blood pressure as well. Prescriptions: Amoxicillin 500Mg Capsule [Amoxil] 500 mg PO TID #30 tab Forms: Patient Portal Access Time of Disposition: 02:59 Quality - Quality Measures Quality Measures: N/A - Blood Pressure Screening Does Patient Have Any of the Following: Active Dx of HTN Blood Pressure Classification: Hypertensive Reading Systolic Measurement: 193 Diastolic Measurement: 122 Screening for High Blood Pressure: Patient Exclusion, Hx of HTN [G9744]
[2017-12-25] MEDS: AMOXICILLIN 500MG CAPSULE PO ONE (03:02)
== END 2017-12-25 03:19 | disposition home or self-care (01) ==
LOC: ER 02:35
DX: J01.90 Acute sinusitis, unspecified (principal); R10.9 Unspecified abdominal pain; R05 Cough; I10 Essential (primary) hypertension
CPT/HCPCS: 99282

== ENCOUNTER 2018-06-11 12:20 | Day surgery (SDC) | payer MEDICARE, BC ==
[2018-06-11] MEDS ORDERED: FENTANYL PF 100MCG/2ML VIAL IV ONE (12:21)
[2018-06-11] MEDS ORDERED: PROPOFOL 10 MG/ML VIAL IV ONE (12:21)
[2018-06-11] MEDS ORDERED: LIDOCAINE 2% MDV (20MG/ML) 20ML VIAL IV ONE (12:21)
--- NOTE | 2018-06-13 09:10 | Operative Note ---
OPERATION: COLONOSCOPY to the cecum with electrocautery snare polypectomy x1. INDICATION: Colorectal cancer screening. HISTORY: The patient is a pleasant 67-year-old gentleman who presents today for his first colonoscopy. He admits to chronic constipation and abdominal pain. ANESTHESIA: Intravenous sedation was administered by the department of anesthesiology and included Diprivan titrated to effect. PROCEDURE: Following informed consent from this alert individual including a discussion of the risks and benefits of the procedure and an opportunity for the patient to ask questions, the patient was in the left lateral decubitus position. A digital rectal examination was performed. No abnormalities were noted. Following this, the Olympus [id number] video colonoscope was inserted into the rectum without resistance. The rectal mucosa had a normal appearance with normal folds and distensibility. It was advanced farther up the bowel to the level of the cecum without much difficulty. Throughout the remainder of the bowel, the mucosa appeared normal, the folds were normal, and the bowel was fairly well distensible. The cecum was defined by noting the appendiceal orifice and ileocecal valve. The colon preparation was good. From the base of the cecum, the colonoscope was then withdrawn. No changes were noted until the sigmoid colon was reached. In the proximal sigmoid, there was a sessile 8-9 mm polyp noted which was removed with electrocautery snare polypectomy and suctioned through the endoscope into a collection trap. Retroflexion in the rectum was endoscopically unremarkable. The endoscope was straightened and withdrawn. The patient tolerated the procedure well and was returned to the recovery area in stable condition. IMPRESSION: 1. An 8-9 mm proximal sigmoid polyp noted and removed with electrocautery snare polypectomy. 2. The remainder of the examination was unremarkable. RECOMMENDATIONS: Further recommendations will be forthcoming pending results of pathology obtained today. Followup will be with Dr. Franco as well. As always, thank you for allowing me to participate in the care of your patient. CC: Cruz Franco MD [facility]
--- NOTE | 2018-06-13 09:10 | Operative Note ---
OPERATION: ESOPHAGOGASTRODUODENOSCOPY with biopsy. INDICATION: Intermittent abdominal pain with occasional pyrosis, rule out upper GI tract pathology. The patient reports having pain in the epigastrium and left upper quadrant sometimes radiating to the back. He has a prior history of irritable bowel syndrome as well. ANESTHESIA: Intravenous sedation was administered by the department of anesthesiology and included Diprivan titrated to effect. PROCEDURE: Following informed consent from this alert individual, including a discussion of the risks and benefits of the procedure and an opportunity for the patient to ask questions, the patient was in the left lateral decubitus position. The Olympus [id number] video endoscope was inserted into the esophagus without resistance. The proximal esophagus had a normal appearance with normal folds and distensibility. The distal esophagus as well was free from changes. The squamocolumnar junction was smooth, well defined, and approximated the diaphragmatic hiatus. The structure was traversed and the stomach was entered. The gastric fundus and pars media had a normal appearance with normal folds and distensibility. The antrum was evaluated circumferentially demonstrated some very minimal erythema only. No ulcerations or erosions were seen. The pylorus was patent. The duodenal bulb, sweep and descending duodenum were examined in a serial fashion and some very mild duodenitis was noted again without ulcerations or erosions. The endoscope was then drawn back into the stomach. Retroflexion accomplished following air insufflation failed to demonstrate any additional changes. The endoscope was then straightened. Samples were taken from the stomach to assess for Helicobacter pylori and check histology. After biopsy, the endoscope was then drawn back through a normal esophagus and removed from the patient. He tolerated the procedure well and was returned to the recovery area in stable condition. IMPRESSION: 1. Mild duodenitis and minimal gastritis as described above. Biopsies taken from the stomach. 2. No ulcers or erosions noted. RECOMMENDATION: The patient had been using anti-inflammatory medication and perhaps this is the cause of his mild inflammation. He was asked to avoid those if possible. He can utilize an acid blockade medication if needed although in the past this did not seem to be helpful. Followup will also be with Dr. Franco. Further recommendations pending pathology. As always, thank you for allowing me to participate in the care of your patient. CC: Cruz Franco MD [facility]
== END 2018-06-11 15:11 | disposition home or self-care (01) ==
LOC: HOP 12:20
PROVIDERS: ATTEND Internal Medicine Gastroenterology
DX: Z12.11 Encounter for screening for malignant neoplasm of colon (principal); K63.5 Polyp of colon; K59.09 Other constipation; R10.9 Unspecified abdominal pain; R12 Heartburn; Z87.19 Personal history of other diseases of the digestive system; R10.13 Epigastric pain; K29.80 Duodenitis without bleeding; K29.70 Gastritis, unspecified, without bleeding; I10 Essential (primary) hypertension
CPT/HCPCS: 45385; 43239; 00813; 88305; J3010